=== PATIENT | male | born 1950 | race African-American/Black ===

== ENCOUNTER 2024-04-14 15:46 | Emergency (ER) | payer SELFPAY ==
[2024-04-14 15:57] VITALS: BP 118/103; PULSE 92; RESP 20; TEMP 98.7; BMI 23.1
== END 2024-04-14 16:40 | disposition left against medical advice (07) ==
LOC: JER 15:46
DX: R53.1 Weakness (principal); W10.8XXA Fall (on) (from) other stairs and steps, initial encounter
CPT/HCPCS: 93005; 93010; 99283-25